=== PATIENT | male | born 1950 | race Caucasian/White ===

== ENCOUNTER 2021-09-01 14:24 | Emergency (ER) | payer OTHER ==
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
[2021-09-01 16:20] VITALS: BP 186/90; PULSE 63
== END 2021-09-01 15:05 | disposition home or self-care (01) ==
LOC: VM.ED 14:24
DX: R55 Syncope and collapse (principal); E10.9 Type 1 diabetes mellitus without complications
CPT/HCPCS: 99283; 99284

== ENCOUNTER 2022-06-11 12:58 | Emergency (ER) | payer OTHER ==
[2022-06-11] MEDS: Lidocaine 1% 5 ML VIAL INJECT ONE (14:33)
[2022-06-11 14:49] VITALS: PULSE 86
[2022-06-11 15:03] VITALS: BP 168/88
== END 2022-06-11 13:34 | disposition home or self-care (01) ==
LOC: VM.ED 12:58
DX: S01.111A Laceration without foreign body of right eyelid and periocular area, initial encounter (principal); E10.649 Type 1 diabetes mellitus with hypoglycemia without coma; E78.00 Pure hypercholesterolemia, unspecified; I10 Essential (primary) hypertension; Z79.4 Long term (current) use of insulin; Z88.8 Allergy status to other drugs, medicaments and biological substances; W01.10XA Fall on same level from slipping, tripping and stumbling with subsequent striking against unspecified object, initial encounter
CPT/HCPCS: 12011; 99283; 99284